=== PATIENT | female | born 1960 | race Caucasian/White ===

== ENCOUNTER → 2025-09-12 13:49 | Outpatient (REF) | payer BC, SELFPAY | LOC: HWRAD 13:49 | PROVIDERS: ATTENDING PHYSICIAN Internal Medicine Geriatric Medicine | DX: E78.2 Mixed hyperlipidemia (principal); R10.30 Lower abdominal pain, unspecified; N28.1 Cyst of kidney, acquired; E78.41 Elevated Lipoprotein(a); R73.01 Impaired fasting glucose; E04.1 Nontoxic single thyroid nodule; Z13.89 Encounter for screening for other disorder | CPT/HCPCS: 75571 ==

== ENCOUNTER → 2025-09-18 14:49 | Outpatient (REF) | payer BC, SELFPAY | LOC: HWRCS 14:49 | PROVIDERS: ATTENDING PHYSICIAN Internal Medicine Geriatric Medicine | DX: Z00.00 Encounter for general adult medical examination without abnormal findings (principal); E78.2 Mixed hyperlipidemia; R10.30 Lower abdominal pain, unspecified; N28.1 Cyst of kidney, acquired; E78.41 Elevated Lipoprotein(a); R73.01 Impaired fasting glucose; E04.1 Nontoxic single thyroid nodule; Z13.89 Encounter for screening for other disorder | CPT/HCPCS: 93306 ==